=== PATIENT | female | born 1980 | race Caucasian/White ===

== ENCOUNTER 2020-04-17 22:37 | Emergency (ER) | payer MEDICAID ==
[~2020-04-17] VITALS: Ht 147.3 cm; Wt 71.2 kg
[2020-04-17 22:46] VITALS: Ht 147.3 cm; Wt 71.2 kg
[2020-04-18 01:10] LABS: UA SPECIFIC GRAVITY >=1.030 (1.005-1.035); microscopic required? YES; urine erythrocyte 2+ (NEGATIVE)
[2020-04-18 01:13] LABS: BASOPHIL % 0.6 % (0.2-1.3)
[2020-04-18 01:22] LABS: CALCIUM 9.7 mg/dL (8.5-10.1); CARBON DIOXIDE 26.2 mmol/L (21-32); CHLORIDE SERUM 99 mmol/L (98-107); CREATININE SERUM 0.6 mg/dL (0.6-1.0); GFR1 > 60 mL/min; GLUCOSE SERUM 165 mg/dL (74-106); POTASSIUM SERUM 3.8 mmol/L (3.5-5.1); SODIUM SERUM 137 mmol/L (136-145)
[2020-04-18 01:26] LABS: ALBUMIN 4.6 g/dL (3.4-5.0); ALKALINE PHOSPHATASE 121 U/L (46-116); ALT/SGPT 32 U/L (14-59); AMYLASE 44 U/L (25-115); AST/SGOT 13 U/L (15-37); LIPASE 177 IU/L (73-393); MAGNESIUM 2.3 mg/dL (1.8-2.4)
[2020-04-18 01:27] LABS: TOTAL PROTEIN, SERUM 9.2 g/dL (6.4-8.2)
[2020-04-18 01:42] LABS: PLATELET COUNT 643 x10^3mcL (179-408); RED CELL DISTRIBUTION WIDTH 18.6 % (12.3-17.7)
[2020-04-18 02:11] LABS: rbc morphology (normal/abnorm) ABNORMAL (NORMAL)
[2020-04-18 08:48] VITALS: BP 123/59
== END 2020-04-18 08:48 | disposition home or self-care (01) ==
LOC: ED 22:37
PROVIDERS: Emergency Medicine
DX: R10.816 Epigastric abdominal tenderness (principal); I10 Essential (primary) hypertension; E11.9 Type 2 diabetes mellitus without complications; R07.0 Pain in throat; Z86.2 Personal history of diseases of the blood and blood-forming organs and certain disorders involving the immune mechanism
CPT/HCPCS: Q9966; Q9967